=== PATIENT | male | born 1960 | race Caucasian/White ===

== ENCOUNTER → 2016-09-26 | Outpatient (CLI) | payer BC ==
[~2016-09-26] MED LIST: FLM4 PO; LEVO150T9 PO; OXYC-609 PO; XRL15 PO; XRL20 PO
--- NOTE | 2016-09-26 10:55 | DIAGNOSTIC IMAGING REPORT ---
KUB CLINICAL HISTORY: N20.0 [id number] COMPARISON STUDY: CT scan dated 01/03/2016 FINDINGS: There is no pathologic bowel dilatation. There are no calcification suspicious for renal calculi. There are pelvic basin calcifications present. These likely represent phleboliths. IMPRESSION: 1. No renal calculi identified 2. No evidence of pathologic bowel dilatation Electronically signed by: Simon Payne M.D. 09/26/2016 10:54 AM Dictated Date/Time: 09/26/2016 10:53 AM
== END | disposition home or self-care (01) ==
LOC: C.RAD 10:39
PROVIDERS: ATTEND Urology
DX: N20.0 Calculus of kidney (principal)

== ENCOUNTER → 2017-01-30 | Outpatient (CLI) | payer BC | END | disposition home or self-care (01) | LOC: C.RDSM 11:44 | PROVIDERS: ATTEND Physical Medicine & Rehabilitation Sports Medicine | DX: M25.562 Pain in left knee (principal) ==

== ENCOUNTER → 2017-05-10 | Outpatient (CLI) | payer BC | END | disposition home or self-care (01) | LOC: C.RDSM 13:15 | PROVIDERS: ATTEND Physical Medicine & Rehabilitation Sports Medicine | DX: M16.10 Unilateral primary osteoarthritis, unspecified hip (principal) ==

== ENCOUNTER → 2017-12-25 | Outpatient (CLI) | payer OTHER ==
--- NOTE | 2017-12-25 12:53 | DIAGNOSTIC IMAGING REPORT ---
KUB CLINICAL HISTORY: N20.0 Nephrolithiasis nephrocalcinosis COMPARISON STUDY: 09/26/2016 FINDINGS: The soft tissues, psoas shadows, renal outlines and intestinal gas pattern appear normal. There is no evidence for bowel obstruction. No abnormal abdominal calcifications are seen. IMPRESSION: Normal study. No change from the prior study. The above report was generated using voice recognition software. It may contain grammatical, syntax or spelling errors. Electronically signed by: Pedrito Sagastume M.D. 12/25/2017 12:51 PM Dictated Date/Time: 12/25/2017 12:48 PM
== END | disposition home or self-care (01) ==
LOC: C.RAD 10:20
PROVIDERS: ATTEND Urology
DX: N20.0 Calculus of kidney (principal)

== ENCOUNTER → 2017-12-28 | Outpatient (CLI) | payer OTHER | END | disposition home or self-care (01) | LOC: C.LAB1850 11:29 | PROVIDERS: ATTEND Urology | DX: Z80.52 Family history of malignant neoplasm of bladder (principal) ==

== ENCOUNTER 2022-02-03 05:17 | Observation (INO) ==
--- NOTE | 2021-12-21 12:44 | PAT Medication Instructions ---
Medication Instructions Date of Service December 21, 2021 Home Medications atorvastatin 20 mg tablet 20 mg PO QPM cetirizine 10 mg tablet (Zyrtec) 10 mg PO UD PRN ALLERGIES levothyroxine 150 mcg tablet 150 mcg PO QAM bupropion HCl 300 mg 24 hr tablet, extended release (Wellbutrin XL) 300 mg PO QAM DO NOT take the morning of surgery cetirizine 10 mg tablet (Zyrtec) 10 mg PO UD PRN ALLERGIES Take morning of surgery With a small sip of water, OTHERWISE NOTHING TO EAT OR DRINK AFTER MIDNIGHT: levothyroxine 150 mcg tablet 150 mcg PO QAM bupropion HCl 300 mg 24 hr tablet, extended release (Wellbutrin XL) 300 mg PO QAM Take evening before surgery atorvastatin 20 mg tablet 20 mg PO QPM cetirizine 10 mg tablet (Zyrtec) 10 mg PO UD PRN ALLERGIES (if needed) Other Notes If you have any questions please call us at [phone] or [phone] or [phone] or [phone]
--- NOTE | 2021-12-28 08:28 | Anesthesiology Consultation ---
Date of Service December 28, 2021 Assessment & Plan (1) Encounter for pre-operative examination: Plan - will attempt obtain most recent PCP note. - COVID screening: Per assessment on 12/28/2021: Travel screen negative, no known COVID-19 positive contacts or current COVID-19 related symptoms in past 2 weeks. Pt vaccinated. Surgeon arranging preop COVID testing, scheduled 02/01/2022. Awaiting results. Chart Review Chart Review: Pending: Refer to Additional Notes / Consult section and Patient seen in Pre Admission Testing Teaching & Discussion Pre-Anesthesia Teaching/Discussion Notes: Instructed NPO after midnight before surgery, except medications with 15 cc of water. Medication instructions provided according to the PAT guidelines. History Surgery Operation Date: 02/03/22 10:40 Proposed Procedures p Right Total Hip Arthroplasty - Pranav Tello MD Height/Weight Height: 6 ft 5 in Weight: 124.9 kg Allergies Allergy/AdvReac Type Severity Reaction Status Date / Time No Known Allergies Allergy Verified 12/20/21 15:11 Medications Home Medications Medication Instructions Recorded Confirmed Last Taken atorvastatin 20 mg tablet 20 mg PO QPM 12/01/18 12/20/21 12/01/18 cetirizine 10 mg tablet (Zyrtec) 10 mg PO UD PRN ALLERGIES 12/01/18 12/20/21 12/01/18 levothyroxine 150 mcg tablet 150 mcg PO QAM 12/01/18 12/20/21 12/01/18 bupropion HCl 300 mg 24 hr tablet, 300 mg PO QAM 12/20/21 12/20/21 Unknown extended release (Wellbutrin XL) Past Medical History Medical History (Updated 12/28/21 @ 08:32 by Alba Al PA-C) Acid reflux infrequent, PRN Pepto Anxiety and depression Borderline high cholesterol Treated to resolution with statin DVT of lower extremity (deep venous thrombosis) HX OF R 2015--unknown cause, was on blood thinner for several weeks- months, then taken off--no further issues Hiatal hernia DX 30 YR AGO History of kidney stones Hypothyroidism PE (pulmonary thromboembolism) HX OF - MAR 2016-unknown cause per pt, anticoagulated x several weeks-months Patient denies h/o stroke, seizures, heart attack, heart failure, DM, HTN or blood transfusions. Exercise / Class Metabolic Activity II 4-5 Yardwork/Stairs/Walk up hill (denies CP or SOB with 1 FOS) Past Family History Family History Mother Family history of diabetes mellitus Other No family history of adverse response to anesthesia Past Surgical History Surgical History H/O tooth extraction History of arthroscopy of right knee History of colonoscopy History of oral surgery tooth implant History of partial thyroidectomy History of vasectomy Past Anesthesia History No Hx of Anesthesia Complications and No Family Hx of Anesthesia Complications History of PONV No Hx of Motion Sickness and History of PONV Social History Smoking Status: Never smoker Do You Dip or Chew Tobacco: No Hx Alcohol Use: Yes Alcohol type: wine alcohol intake frequency: a few times a week Hx Substance Use: No substance use type: does not use Review of Systems Occasional snoring, denies witnessed apneas. Patient denies chest pain, shortness of breath, dyspnea on exertion, fever, chills, cough, wheezing, or palpitations. Physical Exam Vital Signs Vitals BP 153/84 (he states is stressed regarding surgery) P 59 TEMP 98.3 SP02 96% on RA RESP 17 Physical Full cervical extension range of motion without pain TMD 3.5 finger breadths Mallampati Score 2 Dentition: intact, one implant right lower back, several caps/crowns none in front per pt; denies chipped or loose teeth or bridges Lungs: normal respiratory effort. Clear throughout to auscultation, no adventitious breath sounds Cardiac: regular rate and rhythm, no murmurs noted Carotid arteries: negative bruit bilat Lab Results Anesthesia Preop Results Results Anesthesia Widget: WBC 7.74 K/ul (4.8-10.8) 12/28/21 Hgb 14.7 g/dl (14.0-18.0) 12/28/21 Hct 43.8 % (40.1-51.0) 12/28/21 Plt 268 K/uL (130-400) 12/28/21 Na 139 mmol/L (136-145) 12/28/21 K 3.9 mmol/L (3.5-5.1) 12/28/21 Cl 108 mmol/L (98-107) H 12/28/21 CO2 24 mmol/L (21-32) 12/28/21 BUN 14 mg/dl (6-23) 12/28/21 Creat 1.02 mg/dl (0.6-1.4) 12/28/21 Glucose Level 104 mg/dl (70-99(Fasting)) H 12/28/21 PT 11.1 Seconds (9.0-12.0) 12/28/21 PTT 27.8 Seconds (21.0-31.0) 12/28/21 INR 1.0 (0.9-1.1) 12/28/21 Blood Type O Positive 12/28/21 Antibody Screen NEGATIVE 12/28/21 Testing Electrocardiogram Date: 12/28/21 NSR, rate 60 bpm Chest X-Ray Date: 12/28/21 PA and lateral chest radiographs are compared to study dated 12/01/2018 and correlated with chest CT dated 03/28/2016. The cardiomediastinal silhouette is unremarkable. Chronic residual thickening is similar to previous. A large calcified granuloma is again seen in the right upper lobe. The lungs and pleural spaces are otherwise clear. There is no pneumothorax. The bony thorax appears intact. IMPRESSION: No active disease in the chest. Stress Test Date: 05/29/19 Exercise METS 8.7 MPHR 95% Negative ECG and echo for ischemia EF 60% Mildly dilated LV No regional wall motion abnormalities Mild cLVH
--- NOTE | 2022-01-15 10:27 | History and Physical Report ---
DATE OF ADMISSION: 02/03/2022. CHIEF COMPLAINT: Right hip pain, discomfort and stiffness. 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 He has got about a 6-year history of increasing right hip pain and discomfort that has gradually gotten worse over time. He w as actually scheduled to have his hip replaced by Dr. Casrto about 2 years ago, but then COVID hit. He canceled and never rescheduled. He continues to be limited by his hip pain and discomfort. He describes groin pain, thigh pain and lateral hip pain radiating down to his knee, but no further . No numbness. He limps more as the day goes on. It is chronic pain. Minimal relief with anti-inf lammatory medicines. He is ready to have his hip fixed. Of note, the patient does have a history of a DVT in back in 2016 with a negative workup. He is off anticoagulation. PAST MEDICAL HISTORY: Significant for: 1. History of DVT/PE in 2016 with a negative workup. 2. Anxiety/depression. 3. Hypothyroidism. 4. Gastroesophageal reflux disease. 5. Hiatal hernia. 6. Mild obesity with BMI 33. 7. Kidney stones. 8. BPH. PAST SURGICAL HISTORY: Includes: 1. Right knee arthroscopy. 2. Partial thyroidectomy. 3. Vasectomy. ALLERGIES: None. CURRENT MEDICATIONS: 1. Levothyroxine. 2. Atorvastatin. 3. Bupropion. SOCIAL HISTORY: A 61-year-old male. 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 . One drink per week. Does not smoke. FAMILY HISTORY: Significant for bladder cancer and blood clots and diabetes. REVIEW OF SYSTEMS: Negative for diabetes. No chest pain or shortness of breath. History of 1 DVT/P E several years ago with a negative workup. PHYSICAL EXAMINATION: GENERAL: Shows a pleasant middle-aged male. Looks to be in good health. HEENT: Benign. NECK: Supple. No lymphadenopathy. LUNGS: Clear to auscultation. HEART: Has a regular rate and rhythm. ABDOMEN: Soft, nontender, nondistended. EXTREMITIES: Grossly neurovascularly intact, except as follows: Examination of the right hip reveal s the patient ambulates with a slight bit of a limp. Leg lengths appear pretty equal. He has got st iffness with hip motion. He can internally rotate to about -10 to -15. His hip is quite stiff with his external rotation contracture. This does recreate his pain. Negative straight leg raise. No kn ee effusion. He is neurologically intact. X-RAYS: X-rays of the right hip reveal advanced hip arthritis. He has got complete loss of superior joint space. He has got osteophytes around the femoral head and acetabulum. Large medial acetabula r osteophyte. 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 He has failed conservative measures. He was scheduled for surgery in the past, but canceled due to COVID a nd would now like to have his hip fixed. PLAN: We will proceed with hip replacement. The risks and benefits of this procedure were explained to the patient and include but not limited to DVT, PE, , infection, neurological injury, vascul ar injury, bleeding problem, pain, limited range of motion, stiffness, failure to relieve symptoms, i ncomplete relief of symptoms, need for further surgery in the future, etc. The patient understands a nd desires to proceed. Informed consent was obtained. Due to history of DVT, we will use Xarelto postoperatively for 30 days. I will see him back at 2 wee ks postop. As far as discharge plans, he is planning to be discharged to home. Job ID: [id number]
[2022-02-03] MEDS ORDERED: ceFAZolin 2000MG 2,000 MG/15 ML SYR IV SCH (06:00)
[2022-02-03] MEDS ORDERED: TRANEXAMIC ACID 1,000 MG **IV Pre-op IV SCH (06:00)
[2022-02-03] MEDS ORDERED: ACETAMINOPHEN 500 MG TAB PO SCH (06:00)
[2022-02-03] MEDS ORDERED: LR 500ML BOLUS, THEN 15ML/HR IV SCH (06:00)
[2022-02-03] MEDS ORDERED: LR 60ML/HR IV SCH (06:00)
[2022-02-03] MEDS ORDERED: CeleBREX 200 MG CAP PO SCH (06:00)
[2022-02-03] MEDS ORDERED: Scopolamine 1 MG TDSY TD SCH (06:00)
[2022-02-03] MEDS ORDERED: METOCLOPRAMIDE HCL 10 MG TABLET PO SCH (06:00)
[2022-02-03] MEDS ORDERED: FAMOTIDINE 20 MG TAB PO SCH (06:00)
[2022-02-03] MEDS ORDERED: MIDAZOLAM HCL 1 MG/ML 2ML VIAL ONE ×2 (06:10→06:20)
[2022-02-03] MEDS ORDERED: fentaNYL citrate 100 MCG/2 ML VIAL ONE (06:10)
[2022-02-03] MEDS ORDERED: BUPIVACAINE 0.5 % 5 MG/1 ML PF 10ML VIAL ONE (06:28)
[2022-02-03] MEDS ORDERED: MoRPHine SULFATE PF 1 MG/ML 10 ML AMP/VIAL ONE (06:43)
[2022-02-03] MEDS ORDERED: EPINEPHrine INJ 1 MG/ML AMP ONE (06:53)
[2022-02-03] MEDS ORDERED: BUPIVACAINE 0.5 % 5 MG/1 ML MPF 30ML VIAL ONE (06:53)
--- NOTE | 2022-02-03 06:55 | History & Physical Bridge Note ---
Date of Service February 03, 2022 History & Physical Bridge Note I have examined the patient, reviewed the History & Physical and in the interval since the performance of the History & Physical I have noted the following changes of clinical significance: no changes noted
[2022-02-03] MEDS ORDERED: MoRPHine SULFATE PF 1 MG/ML 10 ML AMP/VIAL INT SPINAL ONE (07:13)
[2022-02-03] MEDS ORDERED: LACTATED RINGER'S 500 ML IV PRN (07:13)
[2022-02-03] MEDS ORDERED: HYDROmorphone INJ 0.5 MG/0.5 ML SYR IV PRN (07:13)
[2022-02-03] MEDS ORDERED: ePHEDrine sulfate 50 MG/ML AMP IV PRN (07:13)
[2022-02-03] MEDS ORDERED: ONDANSETRON INJ 2 MG/ML 2 ML VIAL IV PRN (07:13)
[2022-02-03] MEDS ORDERED: NALOXONE HCL 1 MG in SODIUM CHLORIDE 0.9% 1000ML 1,000 ML IV PRN (07:13)
[2022-02-03] MEDS ORDERED: ONDANSETRON INJ 2 MG/ML 2 ML VIAL ONE (07:13)
[2022-02-03] MEDS ORDERED: PROPOFOL IV EMULSION 10 MG/ML 20 ML VIAL IV ONE ×2 (07:13→08:11)
[2022-02-03] MEDS ORDERED: diphenhydrAMINE 50 MG/ML VIAL IV PRN (07:13)
[2022-02-03] MEDS ORDERED: NALBUPHINE HCL INJ 10 MG/ML AMP IV PRN (07:13)
[2022-02-03] MEDS ORDERED: NALOXONE HCL 0.08 MG in SYRINGE 1.8 ML IV PRN (07:13)
[2022-02-03] MEDS ORDERED: NALOXONE HCL 0.4 MG/1 ML VIAL/CARP IV PRN ×2 (07:13→09:57)
[2022-02-03] MEDS ORDERED: SODIUM CHLORIDE 0.9% 1000ML 1,000 ML IV SCH (07:15)
[2022-02-03] MEDS ORDERED: NO NARCOTICS OR SEDATIVES SCH (07:15)
[2022-02-03] MEDS ORDERED: DC INTRASPINAL MORPHINE SCH (07:15)
[2022-02-03] MEDS ORDERED: GLYCOPYRROLATE 0.2 MG/ML VIAL ONE (07:32)
[2022-02-03] MEDS ORDERED: ePHEDrine sulfate 50 MG/ML SYR ONE (08:03)
[2022-02-03] MEDS ORDERED: VASOPRESSIN 20 UNIT/ML VIAL ONE (08:03)
[2022-02-03] MEDS ORDERED: PHENYLEPHRINE 100MCG/ML 5ML SYR ONE (08:03)
--- NOTE | 2022-02-03 08:50 | Operative Report ---
PG Post Operative Report Pre & Post Diagnosis Operation Date: 02/03/22 07:00 Pre-Op Diagnosis: Right Hip Advanced Degenerative Joint Disease Post-Op Diagnosis: Right Hip Advanced Degenerative Joint Disease I identified the patient and participated in the time-out.: Yes Procedure Operation Date: 02/03/22 07:00 Actual Procedures p Right Lateral Total Hip Arthroplasty--Uncemented(Right) - Pranav Tello MD Surgeon Pranav Tello MD Chemical Radiation Technician Petros Hidalgo PA-C Estimated Blood Loss 200 Findings Consistent with Post-Op Diagnosis Operative findings were advanced right hip DJD. He had extensive grade 4 b one-on-bone disease of the femoral head and acetabulum. He had some fairly significant medial and anterior acetabular osteophytes. Moderate-sized joint effusion. Very stiff hip preoperatively. 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 Is been through extensive conservative treatment the past. He was actually scheduled for hip replacement surgery 2 years ago but canceled due to COVID issues. He has been putting this off and now elected proceed with total hip arthroplasty. Description of Procedure Operative implants consist of: 1 Biomet G7 size 62 mm acetabular shell. 2. Washburn hole perl developer. 3. 6.5 cancellous acetabular screws were 35 mm in length and 130 mm length. 4. Highly cross-linked polyethylene liner with a 62 mm outer diameter, 40 mm inner diam with a barrett placed inferior and posterior. 5. DePuy Corail size 15 KLA femoral stem. 6. +5/40 mm ceramic articular ball. The patient was taken the operating, identified, placed on the operating table supine position protectors were properly padded. IV antibiotics tried by anesthesia team. A spinal anesthetic been implemented holding area. Dominguez catheter was placed in sterile fashion. Patient then placed in the left lateral decubitus position. An axillary roll was placed. A Stulberg hip positioner was used for positioning. Right hip and leg were then prepped and draped in usual sterile fashion. A posterior lateral approach of the right hip was then performed through a curvilinear incision centered over the greater trochanter. Sharp dissection was carried through subcutaneous is down above the IT band gluteal fascia the IT band gluteal fascia was lysed longitudinally in line with skin incision. The underlying greater bursa was excised. The piriformis and external rotators were then tagged and taken off the posterior aspect of the hip joint capsule. Great care was taken throughout the procedure protect the sciatic nerve at all times. Posterior capsulotomy was then performed leaving a large flap for later repair. The hip was internally rotated and dislocated. Femoral neck osteotomy cut was made with a Final Cut about 15 mm above the lesser trochanter. Femoral head was removed and sent for pathology. The femur was retracted anteriorly. Attention drawn the acetabulum. The acetabular labrum was excised. The pulmonary fat was excised. Sequential reaming the acetabular was then performed again with size 45 and progressing up to a 61. I reamed a little bit with a 62 reamer. A 62 mm Biomet G7 acetabular shell was then placed in about 40 degrees lateral opening and 20 degrees of anteversion. It was fixed with two 6.5 cancellous acetabular screws. Trial liner was placed. Some osteophytes were taken off anteriorly. Attention drawn the femur. The proximal femur was entered with a TuneGO cutter followed by canal finder. I then broached beginning size 8 and progressed up to a size 15. We got excellent fit with a 15. I then trialed the hip and the +5 articular ball seem to recreate soft tissue tension appropriately and leg lengths equal. He had his hip was fully stable. I did elect to place a barrett on the liner to maximize his stability postoperatively. Elect to place these implants. Nupathe all trial implants were removed. An apex hole perl developer was placed. Highly cross-linked polyethylene liner was placed with a barrett placed inferior and posterior. A DePuy MTX ConnectA size 15 femoral stem was impacted in position. +5/40 mm ceramic articular ball was placed. Hip was located once again found to be stable. Attention drawn toward closing. The wound was irrigated scope soft pulsatile lavage solution. He did get 1 g of tranexamic acid at the beginning of the surgery. I did inject locally with 60 cc of half percent Marcaine with epinephrine. The posterior capsule external rotators were then repaired through drill holes in the posterior trochanter with #2 Tycron suture. The IT band gluteal fascia then closed in 1 PDS suture in running fashion for subcutaneous tissues then closed with 2 layers of deep layer #1 Vicryl suture subcutaneous tissues with 2-0 Dexon suture in a buried interrupted fashion. Skin was closed skin mariana. Leg was then cleaned and dried and a sterile dressing was Xeroform, 4 x 4's, ABD pad, foam tape was applied. The patient then transferred to the recovery room in stable condition. Patient tolerated procedure well and there were no complications. Petros Hidalgo, my physician diagnostic assistant, was present for the entire procedure. His assistance was essential and required for appropriate patient positioning, prepping and draping, surgical exposure, performing the technical details of the operation, placement the implants, closure of the wound, and placement of the sterile bandage. I attest to the content of the Intraoperative Record and any orders documented therein. Any exceptions are noted below.
--- NOTE | 2022-02-03 09:44 | Anesthesiology Progress Note ---
Date of Service February 03, 2022 Anesthesia Post Procedure Vital Signs Vital Signs: Temp Pulse Resp BP Pulse Ox O2 Del Method O2 Flow Rate 02/03/22 09:30 65 18 112/59 L 97 Nasal Cannula 2 02/03/22 09:15 69 18 103/57 L 98 Nasal Cannula 2 02/03/22 09:05 97.5 F L 66 18 109/56 L 95 Nasal Cannula 2 02/03/22 08:55 65 18 100/63 98 Oxymask 5 02/03/22 08:45 76 20 88/47 L 96 Oxymask 5 02/03/22 08:39 97.2 F L 68 20 108/52 L 98 Oxymask 5 02/03/22 05:42 98.2 F 50 L 22 156/81 H 98 Room Air Transfer of Care Handoff Completed per policy Notes Mental Status: alert / awake / arousable and participated in evaluation Patient Amnestic to Procedure: Yes Nausea / Vomiting: adequately controlled Pain: adequately controlled Airway Patency, RR, SpO2: stable & adequate BP & HR: stable & adequate Hydration State: stable & adequate Neuraxial Anesthesia: was administered and sensory block is resolving Anesthetic Complications: no major complications apparent and Pt Satisfied with anesthetic care
[2022-02-03] MEDS ORDERED: MAGNESIUM HYDROXIDE SUSP 30 ML UDC PO PRN (09:57)
[2022-02-03] MEDS ORDERED: ALUMINUM/MAGNESIUM SUSP 30 ML UDC PO PRN (09:57)
[2022-02-03] MEDS ORDERED: DOCUSATE SODIUM/SENNA 50/8.6MG TAB PO SCH (09:57)
[2022-02-03] MEDS ORDERED: bisacodyL 10 MG SUPP PR PRN (09:57)
--- NOTE | 2022-02-03 11:58 | XRay Report ---
AP PELVIS, CROSSTABLE LATERAL RIGHT HIP History: Right total hip arthroplasty. Degenerative arthritis. Postop. FINDINGS: The patient is status post a right total hip arthroplasty. The hardware is intact. No fract ure or dislocation. Skin mariana are in place. IMPRESSION: Right total hip arthroplasty. No evidence for hardware complication ACT 112: Negative or not required by law. Electronically signed by: Hollis Curran M.D. 02/03/2022 11:57 AM
[2022-02-03] MEDS: DOCUSATE SODIUM 100 MG CAP PO SCH ×2 (12:49→20:38)
[2022-02-03] MEDS: TAMSULOSIN HCL 0.4 MG CAP PO SCH (12:52)
[2022-02-03] MEDS: SODIUM CHLORIDE 0.9% 1000ML 1,000 ML IV SCH ×2 (14:03→23:01)
[2022-02-03] MEDS: KETOROLAC 30 MG/ML VIAL IV SCH ×3 (14:08→22:14)
[2022-02-03] MEDS: MULTIVITAMIN TAB PO SCH (14:09)
[2022-02-03] MEDS ORDERED: TRANEXAMIC ACID / 0.7% NACL 1,000 MG/100 ML BAG IV SCH (14:45)
[2022-02-03] MEDS: ACETAMINOPHEN 500 MG TAB PO SCH ×2 (14:58→22:14)
[2022-02-03] MEDS: Scopolamine CHECK PATCH PLACEMENT SCH (16:44)
[2022-02-03] MEDS: ASCORBIC ACID 500 MG TAB PO SCH (16:49)
[2022-02-03] MEDS: ceFAZolin 2000MG 2,000 MG/15 ML SYR IV SCH ×2 (17:19→22:14)
[2022-02-03] MEDS ORDERED: ATORVASTATIN 20 MG TAB PO SCH (21:00)
[2022-02-03] MEDS ORDERED: SENNA 8.6 MG TAB PO SCH (21:00)
[2022-02-04] MEDS: Scopolamine CHECK PATCH PLACEMENT SCH ×2 (00:05→08:41)
[2022-02-04] MEDS ORDERED: traMADol HCL 50 MG TABLET PO PRN (01:13)
[2022-02-04] MEDS ORDERED: HYDROmorphone INJ 0.5 MG/0.5 ML SYR IV PRN (01:13)
[2022-02-04] MEDS ORDERED: ONDANSETRON INJ 2 MG/ML 2 ML VIAL IV PRN (01:13)
[2022-02-04] MEDS ORDERED: diphenhydrAMINE Capsule 25 MG CAP PO PRN (01:13)
[2022-02-04] MEDS ORDERED: CETIRIZINE HCL 10 MG TABLET PO PRN (01:13)
[2022-02-04] MEDS ORDERED: METOCLOPRAMIDE HCL INJ 5 MG/ML 2 ML VIAL IV PRN (01:13)
[2022-02-04] MEDS: KETOROLAC 30 MG/ML VIAL IV SCH ×2 (05:44→11:02)
[2022-02-04] MEDS: ACETAMINOPHEN 500 MG TAB PO SCH (05:45)
[2022-02-04] MEDS: SODIUM CHLORIDE 0.9% 1000ML 1,000 ML IV SCH (06:25)
[2022-02-04] MEDS ORDERED: LEVOTHYROXINE SODIUM 150 MCG TABLET PO SCH (06:30)
[2022-02-04 07:08] LABS: Basophils # (auto) 0.02 K/uL (0-0.2); Basophils % (auto) 0.2 %; Eosinophils # (auto) 0.36 K/uL (0-0.50); Eosinophils % (auto) 3.2 %; Hematocrit (blood only) 36.1 % (40.1-51.0); Hemoglobin 12.3 g/dl (14.0-18.0); Immature Granulocytes # (auto) 0.04 K/uL (0.00-0.02); Immature Granulocytes % (auto) 0.4 %; Lymphocytes # (auto) 1.92 K/uL (1.2-3.4); Lymphocytes % (auto) 16.8 %; Mean Corpuscular Hemoglobin 29.5 pg (25.0-34.0); Mean Corpuscular Hgb Conc 34.1 g/dL (32.0-36.0); Mean Corpuscular Volume 86.6 fL (80.0-100.0); Mean Platelet Volume 9.1 fL (9.4-12.4); Monocytes # (auto) 1.49 K/uL (0.24-0.82); Monocytes % (auto) 13.1 %; Neutrophils # (auto) 7.57 K/uL (1.4-6.5); Neutrophils % (auto) 66.3 %; Platelet Count 190 K/uL (130-400); RDW Coefficient of Variation 13.3 % (11.5-14.5); RDW Standard Deviation 42.1 fL (36.4-46.3); Red Blood Count 4.17 M/uL (4.63-6.08)
--- NOTE | 2022-02-04 07:25 | Progress Notes ---
DATE OF SERVICE : 02/04/2022. SUBJECTIVE: A 61-year-old gentleman, postoperative day 1 from right hip replacement. He is doing pr alba well. Had a pretty good night. Pain is controlled. No chest pain or shortness of breath. Not feeling dizzy or lightheaded. OBJECTIVE: VITAL SIGNS: Temperature 37.2. Vital signs are stable. GENERAL: Shows a pleasant middle-aged male. He is sitting up in bed, looks comfortable this morning . LUNGS: Clear to auscultation. HEART: Regular rate and rhythm. ABDOMEN: Soft, nontender, nondistended. EXTREMITIES: Grossly neurovascularly intact except as follows: Examination of the right leg reveals the leg to be well aligned. Dressing is clean, dry and intact. His thigh is soft and supple. He is neurologically intact. He can dorsiflex and plantarflex his fo ot appropriately. LABORATORY DATA: Hemoglobin 12.3. Hematocrit 36.1. Electrolytes are pending. 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 Pain is controlled. Hip is located. He is neurologically intact. PLAN: 1. DVT prophylaxis includes thigh-high TEDs, SCDs. We are going to use Xarelto for 30 days due to h is history of a DVT in the past. 2. PT, OT, weightbear as tolerated. Right total hip protocol. 3. Pain control, doing okay with current pain regimen. 4. Disposition: Plan to discharge to home with some home health later today if he does okay in ther [facility]. Job ID: [id number]
[2022-02-04 07:36] LABS: Calcium 8.4 mg/dl (8.5-10.1); Creatinine Clr Calc Pharmacy 93.4 ml/min; Est GFR (African American) 73.9 ml/min; Est GFR (Non-African American) 63.8 ml/min; Potassium 3.7 mmol/L (3.5-5.1)
[2022-02-04] MEDS ORDERED: dexAMETHasone 10 MG in SYRINGE 0 ML IV SCH (08:00)
[2022-02-04] MEDS: ASCORBIC ACID 500 MG TAB PO SCH (08:41)
[2022-02-04] MEDS: MULTIVITAMIN TAB PO SCH (08:42)
[2022-02-04] MEDS: TAMSULOSIN HCL 0.4 MG CAP PO SCH (08:43)
[2022-02-04] MEDS: DOCUSATE SODIUM 100 MG CAP PO SCH (08:46)
[2022-02-04] MEDS ORDERED: RIVAROXABAN 10 MG TABLET PO SCH (09:00)
[2022-02-04] MEDS ORDERED: buPROPion XL 300 MG TABCR PO SCH (09:00)
--- NOTE | 2022-02-06 11:01 | Discharge Summary ---
Date of Service February 06, 2022 Discharge Data Consultations 02/03/22 14:34 Consult Behavioral Health Liaison Routine Procedures Performed Operation Date: 02/03/22 07:00 Actual Procedures p Right Lateral Total Hip Arthroplasty--Uncemented(Right) - Pranav Tello MD Hospital Course (1) S/P total right hip arthroplasty: This is a 61 year old patient admitted on 02/03/22 and underwent total hip arthroplasty. He tolerated the procedure well and there were no complications. Transferred to the PACU post op and later to the orthopedic floor for further care. He was given ancef for antibiotic prophylaxis. He was also given JONEL stockings, SCDs, and xarelto for DVT prophylaxis. Hemoglobin, hematocrit, and vital signs were monitored during his hospital stay and remained stable. Did not require any blood transfusions. There were no complications during his hospital stay. By post op day #1 the patient was tolerating a regular diet, pain was reasonably controlled with oral pain medicine, and he was participating in physical therapy. On post op day #1 the patient was discharged home and set up with home health care. He was given printed discharge instructions including prescriptions for extra strength tylenol, xarelto, zofran, senokot, flomax, and tramadol. Continue physical therapy, weight bearing as tolerated. Continue hip precautions. Continue JONEL stockings. Follow up approximately 2 weeks post op or sooner if there are problems or concerns. Coding Level of Care Code None Diagnoses S/P total right hip arthroplasty Z96.641
== END 2022-02-04 13:50 | disposition home health service (06) ==
LOC: ASU 05:17 → PACUINP 05:17 → 3E 13:50